=== PATIENT | male | born 1935 | race Caucasian/White ===

== ENCOUNTER 2016-08-20 19:14 | Emergency (ER) | payer MEDICARE, OTHER ==
[2016-08-20] MEDS ORDERED: OLANZapine INTRAMUSCULAR 10 MG VIAL (S0166) As Ordered ONE (21:48)
[2016-08-20] MEDS ORDERED: OLANZapine INTRAMUSCULAR 10 MG VIAL (S0166) IM ONE (23:15)
--- NOTE | 2016-08-20 23:40 | REPUSA ---
CT of the head Clinical history: trauma. Protocol: Multiple axial CT images obtained with 5 mm slice thickness were obtained through the head without administration of contrast. Findings: The ventricles and sulci are symmetric but prominent in size bilaterally. There are periven tricular areas of low attenuation throughout the deep white matter. There is no evidence of acute hem orrhage or infarct. There is no midline shift, mass effect, or extra-axial fluid collection. The osse ous structures are unremarkable. The visualized paranasal sinuses and mastoid air cells are clear. Impression: No acute hemorrhage or infarct. Findings are consistent with mild age-related atrophy and chronic small vessel ischemic disease.
--- NOTE | 2016-08-21 | REPUSA ---
CT of the cervical spine Clinical history: Pain. Technique: Multiple axial CT images were obtained through the cervical spine without administration o f contrast. Coronal and sagittal 3-D reconstructed images were also obtained. Comparison: None. Findings: The cervical vertebral bodies are in satisfactory positioning and alignment. No fractures or dislocat ions are demonstrated. The odontoid process is intact. There is severe degenerative disc disease at C 3/C4 and C5/C6. Disc osteophyte complexes are seen at these levels. Moderate bilateral facet arthropa thy is noted with sclerosis and osteophytes. There is no evidence of facet subluxation. The neural fo ramen appear grossly patent. The cervical cranial junction is intact. The cervical spinal canal demon strates normal caliber and contour without evidence of spinal stenosis. The surrounding soft tissues are within normal limits. Impression: No acute fracture or traumatic injury. Severe degenerative disc disease at C3/C4 and C5/C 6. Mild cervical spondylosis otherwise noted.
--- NOTE | 2016-08-21 | REPUSA ---
CT of the facial bones without contrast Clinical history: Pain, injury. Technique: Multiple axial CT images were obtained through the facial bones and paranasal sinuses util izing 3 mm axial slices without administration of contrast. Coronal and sagittal reconstructions were also obtained. Findings: The visualized paranasal sinuses are clear. The osteomeatal complexes are patent bilaterall y. The nasal septum is midline. The visualized mastoid air cells are clear. The osseous structures do not demonstrate any acute abnormalities. The superficial soft tissues are within normal limits. Impression: Unremarkable CT examination of the facial bones and paranasal sinuses.
--- NOTE | 2016-08-21 00:52 | EDDOCDS ---
Physician Documentation [facility] Name: Jim Overton Age: 80 yrs Sex: Male : 1935 Arrival Date: 08/20/2016 Time: 19:14 Bed PD Private MD: Jarred Burciaga Disposition: 08/21/16 00:19 Discharged to Home/Self Care. Impression: Laceration without foreign body of other part of head - Right Facial Laceration, Superficial injury of head, Cervicalgia - Acute, Degenerative Disc Disease on CT of C-spine, Other spondylosis, cervical region. - Condition is Stable. - Discharge Instructions: Facial Laceration, [id number], Head Injury, Adult, [id number]. - Medication Reconciliation, Local Pharmacy Hours form. - Follow up: Jarred Burciaga; When: 1 - 2 days; Reason: Recheck today's complaints, Continuance of care. Follow up: Emergency Department; Reason: Worsening of conditions. Follow up: Orthopaedics, [facility]; When: Call to arrange an appointment; Reason: Further diagnostic work-up, Recheck today's complaints, Continuance of care. - Problem is new. - Symptoms have improved. Historical: - Allergies: No known drug Allergies; - Home Meds: 1. Seroquel 100 mg Oral tab 1 tab 2 times per day 2. famotidine 40 mg Oral tab 1 tab once daily 3. Seroquel 50 mg Oral tab 2 times per day PRN 4. Lexapro 20 mg Oral tab once daily 5. Tylenol 325 mg Oral tab twice a day 6. Florinef 0.1 mg Oral tab 1 tab three times daily 7. Provera 2.5 mg oral tab once daily 8. aspirin 81 mg Oral tab 1 tab once daily 9. Aricept 5 mg Oral tab 1 tab once daily 10. Miralax 17 gram/dose Oral powd once daily 11. multivitamin Oral tab daily - PMHx: Alzheimers; Dementia; COPD; Sleep Apnea w/o CPAP; GERD; Diverticulosis; - PSHx: Appendectomy; - Social history: Smoking status: Patient states former smoker of tobacco. No barriers to communication noted, The patient speaks fluent Salvadorean, Speaks appropriately for age. - Family history: Not pertinent. - : The pt / caregiver states he / she is not on anticoagulants. Home medication list is obtained from the facility MAR. - Exposure Risk Screening:: None identified. Vital Signs: 08/20 19:15 BP 155 / 76; Pulse 65; Resp 18; Temp 96.8(T); Pulse Ox 98% on R/A; Weight 74.84 kg / dem1 164.99 lbs; Height 75 in. (190.50 cm); 08/21 00:49 BP 148 / 70; Pulse 66; Resp 18; Temp 97.2(O); Pulse Ox 99% on R/A; Pain 0/10; jmb 08/20 19:15 Body Mass Index 20.62 (74.84 kg, 190.50 cm) dem1 Jerrell Coma Score: 08/20 19:23 Eye Response: spontaneous(4). Verbal Response: oriented(5). Motor Response: obeys ck1 commands(6). Total: 15. Procedures: 21:16 Laceration repair:. Wound care to laceration located on right eye was cleaned with ef1 Betadine, irrigated with normal saline, dressed with Neosporin, 4X4s, Patient tolerated well. Laceration: 21:16 Wound Repair of 1cm ( 0.4in ) avulsed laceration to face and right eye. Distal ef1 neuro/vascular/tendon intact. Dressed with Bacitracin, 4x4's. Patient tolerated well. MDM: 21:12 Wound Care ordered. ef1 21:12 Bacitracin Ointment 500 unit/g 1 applic Topical in affected area once ordered. ef1 21:12 Dressing ordered. ef1 21:13 CT Head Without Contrast Ordered. EDMS 21:13 CT Maxilofacial W/out Contrast Ordered. EDMS 21:14 CT Spine,Cervical W/o Contrast Ordered. EDMS 21:44 OLANZapine 5 mg IM once ordered. cs11 22:19 Financial registration complete. gjb 22:20 OLANZapine 5 mg IM once ordered. cs11 22:21 [facility] Payment Agreement was scanned into [employer] and attached to record. gjb Administered Medications: 21:18 Drug: Bacitracin 1 applic [bacitracin zinc 500 unit/gram topical ointment (1 applic)] ck1 Route: Topical; Site: affected area; 21:55 Drug: OLANZapine 5 mg [olanzapine 10 mg intramuscular solution (5 mg)] Route: IM; Site: jmb right deltoid; 23:43 Not Given (daughter refused, patient asleep): OLANZapine 5 mg IM once reed Signatures: Dispatcher [employer] Carrie Short,RN RN ck1 Zohreh Isaac, PA-C PAEduarda ef1 Krishna Huitron, DO cs11 Maximus Rocha RN RN jmb Beck, Gabriela gjb The chart was reviewed and I authenticate all verbal orders and agree with the evaluation and treatment provided.Attachments: 22:21 [facility] Payment Agreement dinesh MTDD
--- NOTE | 2016-08-21 00:52 | EDDOCDS ---
Nurse's Notes [facility] Name: Jim Overton Age: 80 yrs Sex: Male : 1935 Arrival Date: 08/20/2016 Time: 19:14 Bed PD Private MD: Jarred Burciaga Diagnosis: Laceration without foreign body of other part of head-Right Facial Laceration;Superficial injury of head;Cervicalgia-Acute, Degenerative Disc Disease on CT of C-spine;Other spondylosis, cervical region Presentation: 08/20 19:23 Presenting complaint: Sent from [facility], found sitting in recliner with TV on head. Appears ck1 that patient attempted to pick remover a television and fell backwards hitting his right eye. Bruising with small laceration present. This patient has no additional risk factors. Mechanism of Injury: resulted from a direct blow. Adult Sepsis Screening: The patient does not have new or worsening altered mentation. Patient's respiratory rate is less than 22. Systolic blood pressure is greater than 100. Patient has a qSOFA score of 0- Negative Sepsis Screen. Suicide/Homicide risk assessment- the patient denies having any suicidal and/or homicidal ideations and does not present with any other emotional, behavioral or mental health complaints. 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 Transition of care: patient was received from [facility]. 19:23 Acuity: MANAV Level 3 ck1 19:23 Method Of Arrival: Wheelchair ck1 Triage Assessment: 19:30 General: Appears in no apparent distress, Behavior is appropriate for age, cooperative. ck1 Pain: Unable to use pain scale. Does not appear to understand pain scale. Neurological: Level of Consciousness is awake, alert, obeys commands, Oriented to person. Derm: Bruising that is on right eye Swollen area noted. Musculoskeletal: No deficits noted. Historical: - Allergies: No known drug Allergies; - Home Meds: 1. Seroquel 100 mg Oral tab 1 tab 2 times per day 2. famotidine 40 mg Oral tab 1 tab once daily 3. Seroquel 50 mg Oral tab 2 times per day PRN 4. Lexapro 20 mg Oral tab once daily 5. Tylenol 325 mg Oral tab twice a day 6. Florinef 0.1 mg Oral tab 1 tab three times daily 7. Provera 2.5 mg oral tab once daily 8. aspirin 81 mg Oral tab 1 tab once daily 9. Aricept 5 mg Oral tab 1 tab once daily 10. Miralax 17 gram/dose Oral powd once daily 11. multivitamin Oral tab daily - PMHx: Alzheimers; Dementia; COPD; Sleep Apnea w/o CPAP; GERD; Diverticulosis; - PSHx: Appendectomy; - Social history: Smoking status: Patient states former smoker of tobacco. No barriers to communication noted, The patient speaks fluent Slovak, Speaks appropriately for age. - Family history: Not pertinent. - : The pt / caregiver states he / she is not on anticoagulants. Home medication list is obtained from the facility MAR. - Exposure Risk Screening:: None identified. Screenin:19 Screening information is obtained from residence staff. Fall risk: At risk due to prior 1 history of falls, The following interventions are performed due to a positive Fall Risk Screen: Fall Risk is added to Special Handling on the patient Summary Screen. A Fall Risk Bracelet was applied to the patient. Side Rails are placed in the up position. A Call Howell is given with instruction to call for help when getting out of bed. Fall Alert bracelet is placed on the patient. Assistance ADL's: Requires assistance with meal preparation, this assistance is provided by residence staff, bathing, assistance is provided by residence staff, dressing, assistance is provided by residence staff, toileting, assistance is provided by residence staff, ambulation, assistance is provided by residence staff, housework, assistance is provided by residence staff, medication administration, assistance is provided by residence staff. Abuse/DV Screen: The patient / caregiver reports he/she is: not in a situation that causes fear, pain or injury. Nutritional screening: No deficits noted. Advance Directives: Advance directive information has been placed on a prior [facility] medical record, but the patient/ family does not know when. home support is adequate. Assessment: 21:20 General: Appears in no apparent distress, comfortable, Behavior is appropriate for age, ck1 cooperative. Pain: Unable to use pain scale. Does not appear to understand pain scale. Neurological: Level of Consciousness is awake, alert. Derm: laceration to right eye, bleeding controlled, band aid placed. 08/21 00:49 General: half-way staff educated on discharge instructions. Nurse and daughter jmb asked if there were any questions regarding discharge, both parties stated no. PATIENT CARE SPECIALIST from [facility] signed discharge instructions. Patient discharged in stable condition. . Neurological: Reports no additional symptoms. Vital Signs: 08/20 19:15 BP 155 / 76; Pulse 65; Resp 18; Temp 96.8(T); Pulse Ox 98% on R/A; Weight 74.84 kg; dem1 Height 75 in. (190.50 cm); 08/21 00:49 BP 148 / 70; Pulse 66; Resp 18; Temp 97.2(O); Pulse Ox 99% on R/A; Pain 0/10; jmb 08/20 19:15 Body Mass Index 20.62 (74.84 kg, 190.50 cm) dem1 Vitals: 08/20 19:15 Log In Time: August 20, 2016 at 19:13. dem1 Jerrell Coma Score: 19:23 Eye Response: spontaneous(4). Verbal Response: oriented(5). Motor Response: obeys ck1 commands(6). Total: 15. ED Course: 19:14 Patient visited by Stephie Fernandez. dem1 19:14 Patient moved to Waiting dem1 19:15 Jarred Burciaga MD is Private Physician. dem1 19:16 Patient moved to Pre RCE dem1 19:25 Triage Initiated ck1 20:31 Patient moved to Triage 1 b 20:59 Patient visited by Carrie Gonzales RN. ck1 21:01 Zohreh Isaac PA-C [facility]. ef1 21:01 Krishna Huitron DO is Attending Physician. ef1 21:02 Patient visited by Zohreh Isaac PA-C. ef1 21:18 Patient moved to PR1 / ck1 21:18 Wound care to laceration located on right eye was cleaned with with wound cleanser, ck1 dressed with band aid. 21:20 The patient / caregiver is instructed regarding the plan of care and ED course. ck1 21:39 Patient visited by Zohreh Isaac PA-C. ef1 21:47 Patient moved to PD ajs 22:21 [facility] Payment Agreement was scanned into [employer] and attached to record. gjb 22:22 Patient visited by Zohreh Isaac PA-C. ef1 22:58 Patient visited by Zohreh Isaac PA-C. ef1 23:14 Patient visited by Zohreh Isaac PA-C. ef1 23:49 CT Head Without Contrast Returned. EDMS 08/21 00:04 Patient visited by Zohreh Isaac PA-C. ef1 00:19 Jarred Burciaga MD is Referral Physician. ef1 00[facility] ef1 00:33 CT Maxilofacial W/out Contrast Returned. EDMS 00:33 CT Spine,Cervical W/o Contrast Returned. EDMS 00:49 No IV's were initiated during this patient's visit. No procedures done that require jmb assistance. Administered Medications: 08/20 21:18 Drug: Bacitracin 1 applic [bacitracin zinc 500 unit/gram topical ointment (1 applic)] ck1 Route: Topical; Site: affected area; 21:55 Drug: OLANZapine 5 mg [olanzapine 10 mg intramuscular solution (5 mg)] Route: IM; Site: jmb right deltoid; 23:43 Not Given (daughter refused, patient asleep): OLANZapine 5 mg IM once jmb Order Results: Radiology Order: CT Head Without Contrast Test: CT Head Without Contrast REASON FOR EXAMINATION: Trauma; ; CT of the head; Clinical history: trauma.; Protocol: Multiple axial CT images obtained with 5 mm slice thickness were obtained through the head; without administration of contrast.; Findings: The ventricles and sulci are symmetric but prominent in size bilaterally. There are periven; tricular areas of low attenuation throughout the deep white matter. There is no evidence of acute hem; orrhage or infarct. There is no midline shift, mass effect, or extra-axial fluid collection. The osse; ous structures are unremarkable. The visualized paranasal sinuses and mastoid air cells are clear.; Impression: No acute hemorrhage or infarct. Findings are consistent with mild age-related atrophy and; chronic small vessel ischemic disease.; ; Radiology Order: CT Maxilofacial W/out Contrast Test: CT Maxilofacial W/out Contrast REASON FOR EXAMINATION: Trauma; ; CT of the facial bones without contrast; Clinical history: Pain, injury.; Technique: Multiple axial CT images were obtained through the facial bones and paranasal sinuses util; izing 3 mm axial slices without administration of contrast. Coronal and sagittal reconstructions were; also obtained.; Findings: The visualized paranasal sinuses are clear. The osteomeatal complexes are patent bilaterall; y. The nasal septum is midline. The visualized mastoid air cells are clear. The osseous structures do; not demonstrate any acute abnormalities. The superficial soft tissues are within normal limits.; Impression: Unremarkable CT examination of the facial bones and paranasal sinuses.; ; Radiology Order: CT Spine,Cervical W/o Contrast Test: CT Spine,Cervical W/o Contrast REASON FOR EXAMINATION: Trauma; ; CT of the cervical spine; Clinical history: Pain.; Technique: Multiple axial CT images were obtained through the cervical spine without administration o; f contrast. Coronal and sagittal 3-D reconstructed images were also obtained.; Comparison: None.; Findings:; The cervical vertebral bodies are in satisfactory positioning and alignment. No fractures or dislocat; ions are demonstrated. The odontoid process is intact. There is severe degenerative disc disease at C; 3/C4 and C5/C6. Disc osteophyte complexes are seen at these levels. Moderate bilateral facet arthropa; thy is noted with sclerosis and osteophytes. There is no evidence of facet subluxation. The neural fo; ramen appear grossly patent. The cervical cranial junction is intact. The cervical spinal canal demon; strates normal caliber and contour without evidence of spinal stenosis. The surrounding soft tissues; are within normal limits.; Impression: No acute fracture or traumatic injury. Severe degenerative disc disease at C3/C4 and C5/C; 6. Mild cervical spondylosis otherwise noted.; ; Outcome: 08/21 00:19 Discharge ordered by Provider. ef1 00:49 Discharge Assessment: Patient awake, alert and oriented x 3. No cognitive and/or jmb functional deficits noted. Patient verbalized understanding of disposition instructions. Patient awake and alert. obeys commands, Oriented to person, place and time. Patient verbalized understanding of disposition instructions. Patient has no functional deficits. patient administered narcotics - no. The following High Risk Discharge criteria are identified: None. Discharged to home ambulatory. Condition: stable. Discharge instructions given to patient, ortho tech, Instructed on discharge instructions, follow up and referral plans. Demonstrated understanding of instructions, Pt was receptive of discharge instructions/ teaching. CT Study completed. Property sent home with patient. 00:51 Patient left the ED. reed Signatures: Dispatcher [employer] EDCarrie Espinal,RN RN ck1 Zohreh Isaac, PA-C PA-C ef1 Hailey Gibbs Demeishia dem1 Becker, JoshuaRN RN Irene Bagley MTDD
--- NOTE | 2016-08-23 01:53 | EDDOCDS ---
Physician Documentation [facility] Name: Jim Overton Age: 80 yrs Sex: Male : 1935 Arrival Date: 08/20/2016 Time: 19:14 Bed PD Private MD: Jarred Burciaga Disposition: 08/21/16 00:19 Discharged to Home/Self Care. Impression: Laceration without foreign body of other part of head - Right Facial Laceration, Superficial injury of head, Cervicalgia - Acute, Degenerative Disc Disease on CT of C-spine, Other spondylosis, cervical region. - Condition is Stable. - Discharge Instructions: Facial Laceration, [id number], Head Injury, Adult, [id number]. - Medication Reconciliation, Local Pharmacy Hours form. - Follow up: Jarred Burciaga; When: 1 - 2 days; Reason: Recheck today's complaints, Continuance of care. Follow up: Emergency Department; Reason: Worsening of conditions. Follow up: Orthopaedics, [facility]; When: Call to arrange an appointment; Reason: Further diagnostic work-up, Recheck today's complaints, Continuance of care. - Problem is new. - Symptoms have improved. Historical: - Allergies: No known drug Allergies; - Home Meds: 1. Seroquel 100 mg Oral tab 1 tab 2 times per day 2. famotidine 40 mg Oral tab 1 tab once daily 3. Seroquel 50 mg Oral tab 2 times per day PRN 4. Lexapro 20 mg Oral tab once daily 5. Tylenol 325 mg Oral tab twice a day 6. Florinef 0.1 mg Oral tab 1 tab three times daily 7. Provera 2.5 mg oral tab once daily 8. aspirin 81 mg Oral tab 1 tab once daily 9. Aricept 5 mg Oral tab 1 tab once daily 10. Miralax 17 gram/dose Oral powd once daily 11. multivitamin Oral tab daily - PMHx: Alzheimers; Dementia; COPD; Sleep Apnea w/o CPAP; GERD; Diverticulosis; - PSHx: Appendectomy; - Social history: Smoking status: Patient states former smoker of tobacco. No barriers to communication noted, The patient speaks fluent Guatemalan, Speaks appropriately for age. - Family history: Not pertinent. - : The pt / caregiver states he / she is not on anticoagulants. Home medication list is obtained from the facility MAR. - Exposure Risk Screening:: None identified. Vital Signs: 08/20 19:15 BP 155 / 76; Pulse 65; Resp 18; Temp 96.8(T); Pulse Ox 98% on R/A; Weight 74.84 kg / dem1 164.99 lbs; Height 75 in. (190.50 cm); 08/21 00:49 BP 148 / 70; Pulse 66; Resp 18; Temp 97.2(O); Pulse Ox 99% on R/A; Pain 0/10; jmb 08/20 19:15 Body Mass Index 20.62 (74.84 kg, 190.50 cm) dem1 Jerrell Coma Score: 08/20 19:23 Eye Response: spontaneous(4). Verbal Response: oriented(5). Motor Response: obeys ck1 commands(6). Total: 15. Procedures: 21:16 Laceration repair:. Wound care to laceration located on right eye was cleaned with ef1 Betadine, irrigated with normal saline, dressed with Neosporin, 4X4s, Patient tolerated well. Laceration: 21:16 Wound Repair of 1cm ( 0.4in ) avulsed laceration to face and right eye. Distal ef1 neuro/vascular/tendon intact. Dressed with Bacitracin, 4x4's. Patient tolerated well. MDM: 21:12 Wound Care ordered. ef1 21:12 Bacitracin Ointment 500 unit/g 1 applic Topical in affected area once ordered. ef1 21:12 Dressing ordered. ef1 21:13 CT Head Without Contrast Ordered. EDMS 21:13 CT Maxilofacial W/out Contrast Ordered. EDMS 21:14 CT Spine,Cervical W/o Contrast Ordered. EDMS 21:44 OLANZapine 5 mg IM once ordered. cs11 22:19 Financial registration complete. gjb 22:20 OLANZapine 5 mg IM once ordered. cs11 22:21 [facility] Payment Agreement was scanned into [employer] and attached to record. gjb 08/21 07:44 T-Sheet-- Draft Copy was scanned into [employer] and attached to record. gb 12:40 Other: MOLST was scanned into [employer] and attached to record. gb 12:41 Radiology Report was scanned into [employer] and attached to record. gb Administered Medications: 08/20 21:18 Drug: Bacitracin 1 applic [bacitracin zinc 500 unit/gram topical ointment (1 applic)] ck1 Route: Topical; Site: affected area; 21:55 Drug: OLANZapine 5 mg [olanzapine 10 mg intramuscular solution (5 mg)] Route: IM; Site: jmb right deltoid; 23:43 Not Given (daughter refused, patient asleep): OLANZapine 5 mg IM once jmb Signatures: Dispatcher [employer] EDLia Baker, Reg Reg gb Carrie Gonzales,RN RN ck1 Zohreh Isaac PA-C PAEduarda ef1 Krishna Huitron DO DO cs11 Maximus RochaRN RN Irene Bagley The chart was reviewed and I authenticate all verbal orders and agree with the evaluation and treatment provided.Attachments: 22:21 [facility] Payment Agreement gjb 08/21 07:44 T-Sheet-- Draft Copy gb Chart Complete MTDD
--- NOTE | 2016-08-23 01:53 | EDDOCDS ---
Nurse's Notes [facility] Name: Jim Overton Age: 80 yrs Sex: Male : 1935 Arrival Date: 08/20/2016 Time: 19:14 Bed PD Private MD: Jarred Burciaga Diagnosis: Laceration without foreign body of other part of head-Right Facial Laceration;Superficial injury of head;Cervicalgia-Acute, Degenerative Disc Disease on CT of C-spine;Other spondylosis, cervical region Presentation: 08/20 19:23 Presenting complaint: Sent from [facility], found sitting in recliner with TV on head. 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 Bruising with small laceration present. This patient has no additional risk factors. Mechanism of Injury: resulted from a direct blow. Adult Sepsis Screening: The patient does not have new or worsening altered mentation. Patient's respiratory rate is less than 22. Systolic blood pressure is greater than 100. Patient has a qSOFA score of 0- Negative Sepsis Screen. Suicide/Homicide risk assessment- the patient denies having any suicidal and/or homicidal ideations and does not present with any other emotional, behavioral or mental health complaints. Status: Patient is not a information services assistant or dependent. Transition of care: patient was received from [facility]. 19:23 Acuity: MANAV Level 3 ck1 19:23 Method Of Arrival: Wheelchair ck1 Triage Assessment: 19:30 General: Appears in no apparent distress, Behavior is appropriate for age, cooperative. ck1 Pain: Unable to use pain scale. Does not appear to understand pain scale. Neurological: Level of Consciousness is awake, alert, obeys commands, Oriented to person. Derm: Bruising that is on right eye Swollen area noted. Musculoskeletal: No deficits noted. Historical: - Allergies: No known drug Allergies; - Home Meds: 1. Seroquel 100 mg Oral tab 1 tab 2 times per day 2. famotidine 40 mg Oral tab 1 tab once daily 3. Seroquel 50 mg Oral tab 2 times per day PRN 4. Lexapro 20 mg Oral tab once daily 5. Tylenol 325 mg Oral tab twice a day 6. Florinef 0.1 mg Oral tab 1 tab three times daily 7. Provera 2.5 mg oral tab once daily 8. aspirin 81 mg Oral tab 1 tab once daily 9. Aricept 5 mg Oral tab 1 tab once daily 10. Miralax 17 gram/dose Oral powd once daily 11. multivitamin Oral tab daily - PMHx: Alzheimers; Dementia; COPD; Sleep Apnea w/o CPAP; GERD; Diverticulosis; - PSHx: Appendectomy; - Social history: Smoking status: Patient states former smoker of tobacco. No barriers to communication noted, The patient speaks fluent [place], Speaks appropriately for age. - Family history: Not pertinent. - : The pt / caregiver states he / she is not on anticoagulants. Home medication list is obtained from the facility MAR. - Exposure Risk Screening:: None identified. Screenin:19 Screening information is obtained from residence staff. Fall risk: At risk due to prior 1 history of falls, The following interventions are performed due to a positive Fall Risk Screen: Fall Risk is added to Special Handling on the patient Summary Screen. A Fall Risk Bracelet was applied to the patient. Side Rails are placed in the up position. A Call Howell is given with instruction to call for help when getting out of bed. Fall Alert bracelet is placed on the patient. Assistance ADL's: Requires assistance with meal preparation, this assistance is provided by residence staff, bathing, assistance is provided by residence staff, dressing, assistance is provided by residence staff, toileting, assistance is provided by residence staff, ambulation, assistance is provided by residence staff, housework, assistance is provided by residence staff, medication administration, assistance is provided by residence staff. Abuse/DV Screen: The patient / caregiver reports he/she is: not in a situation that causes fear, pain or injury. Nutritional screening: No deficits noted. Advance Directives: Advance directive information has been placed on a prior [facility] medical record, but the patient/ family does not know when. home support is adequate. Assessment: 21:20 General: Appears in no apparent distress, comfortable, Behavior is appropriate for age, ck1 cooperative. Pain: Unable to use pain scale. Does not appear to understand pain scale. Neurological: Level of Consciousness is awake, alert. Derm: laceration to right eye, bleeding controlled, band aid placed. 08/21 00:49 General: correction staff educated on discharge instructions. Nurse and daughter jmb asked if there were any questions regarding discharge, both parties stated no. DULSER from [facility] signed discharge instructions. Patient discharged in stable condition. . Neurological: Reports no additional symptoms. Vital Signs: 08/20 19:15 BP 155 / 76; Pulse 65; Resp 18; Temp 96.8(T); Pulse Ox 98% on R/A; Weight 74.84 kg; dem1 Height 75 in. (190.50 cm); 08/21 00:49 BP 148 / 70; Pulse 66; Resp 18; Temp 97.2(O); Pulse Ox 99% on R/A; Pain 0/10; jmb 08/20 19:15 Body Mass Index 20.62 (74.84 kg, 190.50 cm) dem1 Vitals: 08/20 19:15 Log In Time: August 20, 2016 at 19:13. dem1 Jerrell Coma Score: 19:23 Eye Response: spontaneous(4). Verbal Response: oriented(5). Motor Response: obeys ck1 commands(6). Total: 15. ED Course: 19:14 Patient visited by Stephie Fernandez. dem1 19:14 Patient moved to Waiting dem1 19:15 Jarred Burciaga MD is Private Physician. dem1 19:16 Patient moved to Pre RCE dem1 19:25 Triage Initiated ck1 20:31 Patient moved to Triage 1 b 20:59 Patient visited by Carrie Gonzales RN. ck1 21:01 [facility] ef1 21:01 Krishna Huitron DO is Attending Physician. ef1 21:02 Patient visited by Zohreh Isaac PA-C. ef1 21:18 Patient moved to PR1 / ck1 21:18 Wound care to laceration located on right eye was cleaned with with wound cleanser, ck1 dressed with band aid. 21:20 The patient / caregiver is instructed regarding the plan of care and ED course. ck1 21:39 Patient visited by Zohreh Isaca PA-C. ef1 21:47 Patient moved to PD ajs 22:21 [facility] Payment Agreement was scanned into Flaskon and attached to record. gjb 22:22 Patient visited by Zohreh Isaac PA-C. ef1 22:58 Patient visited by Zohreh Isaac PA-C. ef1 23:14 Patient visited by Zohreh Isaac PA-C. ef1 23:49 CT Head Without Contrast Returned. EDMS 08/21 00:04 Patient visited by Zohreh Isaac PA-C. ef1 00:19 Jarred Burciaga MD is Referral Physician. ef1 00[facility] ef[facility] 00:33 CT Maxilofacial W/out Contrast Returned. EDMS 00:33 CT Spine,Cervical W/o Contrast Returned. EDMS 00:49 No IV's were initiated during this patient's visit. No procedures done that require jmb assistance. 07:44 T-Sheet-- Draft Copy was scanned into Flaskon and attached to record. gb 12:40 Other: MOLST was scanned into Flaskon and attached to record. gb 12:41 Radiology Report was scanned into Flaskon and attached to record. gb Administered Medications: 08/20 21:18 Drug: Bacitracin 1 applic [bacitracin zinc 500 unit/gram topical ointment (1 applic)] ck1 Route: Topical; Site: affected area; 21:55 Drug: OLANZapine 5 mg [olanzapine 10 mg intramuscular solution (5 mg)] Route: IM; Site: jmb right deltoid; 23:43 Not Given (daughter refused, patient asleep): OLANZapine 5 mg IM once jmb Order Results: Radiology Order: CT Head Without Contrast Test: CT Head Without Contrast REASON FOR EXAMINATION: Trauma; ; CT of the head; Clinical history: trauma.; Protocol: Multiple axial CT images obtained with 5 mm slice thickness were obtained through the head; without administration of contrast.; Findings: The ventricles and sulci are symmetric but prominent in size bilaterally. There are periven; tricular areas of low attenuation throughout the deep white matter. There is no evidence of acute hem; orrhage or infarct. There is no midline shift, mass effect, or extra-axial fluid collection. The osse; ous structures are unremarkable. The visualized paranasal sinuses and mastoid air cells are clear.; Impression: No acute hemorrhage or infarct. Findings are consistent with mild age-related atrophy and; chronic small vessel ischemic disease.; ; Radiology Order: CT Maxilofacial W/out Contrast Test: CT Maxilofacial W/out Contrast REASON FOR EXAMINATION: Trauma; ; CT of the facial bones without contrast; Clinical history: Pain, injury.; Technique: Multiple axial CT images were obtained through the facial bones and paranasal sinuses util; izing 3 mm axial slices without administration of contrast. Coronal and sagittal reconstructions were; also obtained.; Findings: The visualized paranasal sinuses are clear. The osteomeatal complexes are patent bilaterall; y. The nasal septum is midline. The visualized mastoid air cells are clear. The osseous structures do; not demonstrate any acute abnormalities. The superficial soft tissues are within normal limits.; Impression: Unremarkable CT examination of the facial bones and paranasal sinuses.; ; Radiology Order: CT Spine,Cervical W/o Contrast Test: CT Spine,Cervical W/o Contrast REASON FOR EXAMINATION: Trauma; ; CT of the cervical spine; Clinical history: Pain.; Technique: Multiple axial CT images were obtained through the cervical spine without administration o; f contrast. Coronal and sagittal 3-D reconstructed images were also obtained.; Comparison: None.; Findings:; The cervical vertebral bodies are in satisfactory positioning and alignment. No fractures or dislocat; ions are demonstrated. The odontoid process is intact. There is severe degenerative disc disease at C; 3/C4 and C5/C6. Disc osteophyte complexes are seen at these levels. Moderate bilateral facet arthropa; thy is noted with sclerosis and osteophytes. There is no evidence of facet subluxation. The neural fo; ramen appear grossly patent. The cervical cranial junction is intact. The cervical spinal canal demon; strates normal caliber and contour without evidence of spinal stenosis. The surrounding soft tissues; are within normal limits.; Impression: No acute fracture or traumatic injury. Severe degenerative disc disease at C3/C4 and C5/C; 6. Mild cervical spondylosis otherwise noted.; ; Outcome: 08/21 00:19 Discharge ordered by Provider. ef1 00:49 Discharge Assessment: Patient awake, alert and oriented x 3. No cognitive and/or jmb functional deficits noted. Patient verbalized understanding of disposition instructions. Patient awake and alert. obeys commands, Oriented to person, place and time. Patient verbalized understanding of disposition instructions. Patient has no functional deficits. patient administered narcotics - no. The following High Risk Discharge criteria are identified: None. Discharged to home ambulatory. Condition: stable. Discharge instructions given to patient, hospital pharmacy director, Instructed on discharge instructions, follow up and referral plans. Demonstrated understanding of instructions, Pt was receptive of discharge instructions/ teaching. CT Study completed. Property sent home with patient. 00:51 Patient left the ED. reed Signatures: Dispatcher [employer] EDMS Lia Phelan, Reg Reg gb Carrie Gonzales,RN RN ck1 Zohreh Isaac, PA-C PA-C ef1 Hailey Gibbs Demeishia dem1 Becker, Joshua,WILLIAN RN Irene Bagley Chart Complete ALEXANDER
--- NOTE | 2016-08-23 01:53 | EDDOCDS ---
Physician Documentation [facility] Name: Jim Overton Age: 80 yrs Sex: Male : 1935 Arrival Date: 08/20/2016 Time: 19:14 Bed PD Private MD: Jarred Burciaga Disposition: 08/21/16 00:19 Discharged to Home/Self Care. Impression: Laceration without foreign body of other part of head - Right Facial Laceration, Superficial injury of head, Cervicalgia - Acute, Degenerative Disc Disease on CT of C-spine, Other spondylosis, cervical region. - Condition is Stable. - Discharge Instructions: Facial Laceration, Eeou-ek-Fyoe, Head Injury, Adult, Pexk-[id number]. - Medication Reconciliation, Local Pharmacy Hours form. - Follow up: Jarred Burciaga; When: 1 - 2 days; Reason: Recheck today's complaints, Continuance of care. Follow up: Emergency Department; Reason: Worsening of conditions. Follow up: Orthopaedics, [facility]; When: Call to arrange an appointment; Reason: Further diagnostic work-up, Recheck today's complaints, Continuance of care. - Problem is new. - Symptoms have improved. Historical: - Allergies: No known drug Allergies; - Home Meds: 1. Seroquel 100 mg Oral tab 1 tab 2 times per day 2. famotidine 40 mg Oral tab 1 tab once daily 3. Seroquel 50 mg Oral tab 2 times per day PRN 4. Lexapro 20 mg Oral tab once daily 5. Tylenol 325 mg Oral tab twice a day 6. Florinef 0.1 mg Oral tab 1 tab three times daily 7. Provera 2.5 mg oral tab once daily 8. aspirin 81 mg Oral tab 1 tab once daily 9. Aricept 5 mg Oral tab 1 tab once daily 10. Miralax 17 gram/dose Oral powd once daily 11. multivitamin Oral tab daily - PMHx: Alzheimers; Dementia; COPD; Sleep Apnea w/o CPAP; GERD; Diverticulosis; - PSHx: Appendectomy; - Social history: Smoking status: Patient states former smoker of tobacco. No barriers to communication noted, The patient speaks fluent [place], Speaks appropriately for age. - Family history: Not pertinent. - : The pt / caregiver states he / she is not on anticoagulants. Home medication list is obtained from the facility MAR. - Exposure Risk Screening:: None identified. Vital Signs: 08/20 19:15 BP 155 / 76; Pulse 65; Resp 18; Temp 96.8(T); Pulse Ox 98% on R/A; Weight 74.84 kg / dem1 164.99 lbs; Height 75 in. (190.50 cm); 08/21 00:49 BP 148 / 70; Pulse 66; Resp 18; Temp 97.2(O); Pulse Ox 99% on R/A; Pain 0/10; jmb 08/20 19:15 Body Mass Index 20.62 (74.84 kg, 190.50 cm) dem1 Jerrell Coma Score: 08/20 19:23 Eye Response: spontaneous(4). Verbal Response: oriented(5). Motor Response: obeys ck1 commands(6). Total: 15. Procedures: 21:16 Laceration repair:. Wound care to laceration located on right eye was cleaned with ef1 Betadine, irrigated with normal saline, dressed with Neosporin, 4X4s, Patient tolerated well. Laceration: 21:16 Wound Repair of 1cm ( 0.4in ) avulsed laceration to face and right eye. Distal ef1 neuro/vascular/tendon intact. Dressed with Bacitracin, 4x4's. Patient tolerated well. MDM: 21:12 Wound Care ordered. ef1 21:12 Bacitracin Ointment 500 unit/g 1 applic Topical in affected area once ordered. ef1 21:12 Dressing ordered. ef1 21:13 CT Head Without Contrast Ordered. EDMS 21:13 CT Maxilofacial W/out Contrast Ordered. EDMS 21:14 CT Spine,Cervical W/o Contrast Ordered. EDMS 21:44 OLANZapine 5 mg IM once ordered. cs11 22:19 Financial registration complete. gjb 22:20 OLANZapine 5 mg IM once ordered. cs11 22:21 [facility] Payment Agreement was scanned into smartclip and attached to record. gjb 08/21 07:44 T-Sheet-- Draft Copy was scanned into smartclip and attached to record. gb 12:40 Other: MOLST was scanned into smartclip and attached to record. gb 12:41 Radiology Report was scanned into smartclip and attached to record. gb Administered Medications: 08/20 21:18 Drug: Bacitracin 1 applic [bacitracin zinc 500 unit/gram topical ointment (1 applic)] ck1 Route: Topical; Site: affected area; 21:55 Drug: OLANZapine 5 mg [olanzapine 10 mg intramuscular solution (5 mg)] Route: IM; Site: jmb right deltoid; 23:43 Not Given (daughter refused, patient asleep): OLANZapine 5 mg IM once jmb Signatures: Dispatcher [employer] EDLia Baker, Reg Reg gb Carrie Gonzales,RN RN ck1 Zohreh Isaac PA-C PAEduarda ef1 Krishna Huitron DO DO cs11 Maximus RochaRN RN Irene Bagley The chart was reviewed and I authenticate all verbal orders and agree with the evaluation and treatment provided.Attachments: 22:21 [facility] Payment Agreement gjb 08/21 07:44 T-Sheet-- Draft Copy gb Chart Complete MTDD
== END 2016-08-21 00:51 | disposition home or self-care (01) ==
LOC: M ED 19:14
DX: S01.91XA Laceration without foreign body of unspecified part of head, initial encounter (principal); W22.8XXA Striking against or struck by other objects, initial encounter; Y92.129 Unspecified place in nursing home as the place of occurrence of the external cause; Y93.89 Activity, other specified; Y99.8 Other external cause status; M50.30 Other cervical disc degeneration, unspecified cervical region; M47.812 Spondylosis without myelopathy or radiculopathy, cervical region; G30.8 Other Alzheimer's disease; J44.9 Chronic obstructive pulmonary disease, unspecified; G47.30 Sleep apnea, unspecified; K21.9 Gastro-esophageal reflux disease without esophagitis; K57.90 Diverticulosis of intestine, part unspecified, without perforation or abscess without bleeding; Z90.89 Acquired absence of other organs; Z87.891 Personal history of nicotine dependence; Z79.82 Long term (current) use of aspirin; Z79.899 Other long term (current) drug therapy

== ENCOUNTER → 2016-09-03 | Outpatient (REF) | payer MEDICARE, OTHER ==
[2016-09-03 08:48] LABS: MEAN CORPUSCULAR HEMOGLOBIN 32.4 pg (27.0-33.0); MEAN CORPUSCULAR HGB CONC 34.1 g/dl (32.0-36.5); MEAN CORPUSCULAR VOLUME 95.1 fl (80.0-96.0); PLATELET COUNT, AUTOMATED 166 k/mm3 (150-450); RED CELL DISTRIBUTION WIDTH 12.5 % (11.5-14.5); WHITE BLOOD COUNT 4.3 K/mm3 (4.0-10.0)
[2016-09-03 09:12] LABS: BASOPHILS 2 % (0-4); EOSINOPHILS 5 % (0-5)
[2016-09-03 10:04] LABS: ALBUMIN 3.3 GM/DL (3.2-5.2); ALBUMIN/GLOBULIN RATIO 1.03 (1.00-1.93); ALKALINE PHOSPHATASE 53 U/L (45-117); ALT/SGPT 17 U/L (12-78); ANION GAP 8 MEQ/L (8-16); AST/SGOT 16 U/L (15-37); BILIRUBIN,TOTAL 0.5 MG/DL (0.2-1.0); BLOOD UREA NITROGEN 20 MG/DL (7-18); CALCIUM LEVEL 8.3 MG/DL (8.8-10.2); CARBON DIOXIDE LEVEL 31 MEQ/L (21-32); CHLORIDE LEVEL 108 MEQ/L (98-107); CREATININE FOR GFR 1.08 MG/DL (0.70-1.30); GLOMERULAR FILTRATION RATE > 60.0 (>42); GLUCOSE, FASTING 89 MG/DL (83-110); POTASSIUM SERUM 3.8 MEQ/L (3.5-5.1); SODIUM LEVEL 147 MEQ/L (136-145); TOTAL PROTEIN 6.5 GM/DL (6.4-8.2)
== END ==
LOC: SKLAB8 07:00
PROVIDERS: ATTEND Family Medicine
DX: J44.9 Chronic obstructive pulmonary disease, unspecified (principal)

== ENCOUNTER → 2016-10-03 | Outpatient (REF) | payer MEDICARE, OTHER ==
[2016-10-03 09:51] LABS: MEAN CORPUSCULAR HEMOGLOBIN 33.3 pg (27.0-33.0); MEAN CORPUSCULAR HGB CONC 34.6 g/dl (32.0-36.5); MEAN CORPUSCULAR VOLUME 96.4 fl (80.0-96.0); RED CELL DISTRIBUTION WIDTH 12.2 % (11.5-14.5); WHITE BLOOD COUNT 9.8 K/mm3 (4.0-10.0)
== END ==
LOC: SKLAB8 08:20
PROVIDERS: ATTEND Family Medicine
DX: K62.5 Hemorrhage of anus and rectum (principal)

== ENCOUNTER → 2016-10-04 | Outpatient (REF) | payer MEDICARE, OTHER ==
[2016-10-04 10:20] LABS: MEAN CORPUSCULAR HEMOGLOBIN 32.9 pg (27.0-33.0); MEAN CORPUSCULAR HGB CONC 33.9 g/dl (32.0-36.5); RED CELL DISTRIBUTION WIDTH 12.3 % (11.5-14.5); WHITE BLOOD COUNT 7.8 K/mm3 (4.0-10.0)
== END ==
LOC: SKLAB8 08:41
PROVIDERS: ATTEND Family Medicine
DX: K62.5 Hemorrhage of anus and rectum (principal)

== ENCOUNTER → 2016-12-03 | Outpatient (REF) | payer MEDICARE, OTHER ==
[2016-12-03 08:31] LABS: BASO % 0.6 % (0.0-1.0); EOS # 0.2 K/mm3 (0.0-0.50); EOS % 3.1 % (0.0-3.0); LARGE UNSTAINED CELL # 0.3 K/mm3 (0.0-0.4); LARGE UNSTAINED CELL % 4.8 % (0.0-4.0); LYMPH # 1.6 K/mm3 (1.5-4.5); LYMPH % 25.2 % (24.0-44.0); MEAN CORPUSCULAR HEMOGLOBIN 31.8 pg (27.0-33.0); MEAN CORPUSCULAR HGB CONC 33.6 g/dl (32.0-36.5); MEAN CORPUSCULAR VOLUME 94.7 fl (80.0-96.0); MONO # 0.5 K/mm3 (0.0-0.8); MONO % 9.5 % (0.0-5.0); NEUTROPHILS % 56.9 % (36.0-66.0); PLATELET COUNT, AUTOMATED 181 k/mm3 (150-450); RED CELL DISTRIBUTION WIDTH 11.9 % (11.5-14.5); WHITE BLOOD COUNT 5.2 K/mm3 (4.0-10.0)
[2016-12-03 08:44] LABS: ALBUMIN 3.5 GM/DL (3.2-5.2); ALKALINE PHOSPHATASE 55 U/L (45-117); ALT/SGPT 19 U/L (12-78); ANION GAP 6 MEQ/L (8-16); AST/SGOT 15 U/L (15-37); BILIRUBIN,TOTAL 0.5 MG/DL (0.2-1.0); BLOOD UREA NITROGEN 16 MG/DL (7-18); CALCIUM LEVEL 8.5 MG/DL (8.8-10.2); CARBON DIOXIDE LEVEL 31 MEQ/L (21-32); CHLORIDE LEVEL 105 MEQ/L (98-107); CREATININE FOR GFR 1.05 MG/DL (0.70-1.30); GLOMERULAR FILTRATION RATE > 60.0 (>42); GLUCOSE, FASTING 91 MG/DL (83-110); POTASSIUM SERUM 3.6 MEQ/L (3.5-5.1); SODIUM LEVEL 142 MEQ/L (136-145)
== END ==
LOC: SKLAB8 07:00
PROVIDERS: ATTEND Family Medicine
DX: J44.9 Chronic obstructive pulmonary disease, unspecified (principal)

== ENCOUNTER → 2017-03-04 | Outpatient (REF) | payer MEDICARE, OTHER ==
[2017-03-04 08:12] LABS: BASO % 0.5 % (0.0-1.0); EOS # 0.2 K/mm3 (0.0-0.50); EOS % 4.1 % (0.0-3.0); LARGE UNSTAINED CELL # 0.2 K/mm3 (0.0-0.4); LARGE UNSTAINED CELL % 3.7 % (0.0-4.0); LYMPH # 1.6 K/mm3 (1.5-4.5); LYMPH % 21.7 % (24.0-44.0); MEAN CORPUSCULAR HEMOGLOBIN 31.6 pg (27.0-33.0); MEAN CORPUSCULAR HGB CONC 33.6 g/dl (32.0-36.5); MEAN CORPUSCULAR VOLUME 94.2 fl (80.0-96.0); MONO # 0.6 K/mm3 (0.0-0.8); MONO % 10.3 % (0.0-5.0); NEUTROPHILS # 3.7 K/mm3 (1.8-7.7); NEUTROPHILS % 59.8 % (36.0-66.0); PLATELET COUNT, AUTOMATED 195 k/mm3 (150-450); RED CELL DISTRIBUTION WIDTH 12.1 % (11.5-14.5); WHITE BLOOD COUNT 6.2 K/mm3 (4.0-10.0)
[2017-03-04 09:12] LABS: ALBUMIN 3.3 GM/DL (3.2-5.2); ALKALINE PHOSPHATASE 55 U/L (45-117); ALT/SGPT 19 U/L (12-78); ANION GAP 8 MEQ/L (8-16); AST/SGOT 18 U/L (15-37); BILIRUBIN,TOTAL 0.5 MG/DL (0.2-1.0); BLOOD UREA NITROGEN 19 MG/DL (7-18); CALCIUM LEVEL 9.4 MG/DL (8.8-10.2); CARBON DIOXIDE LEVEL 30 MEQ/L (21-32); CHLORIDE LEVEL 104 MEQ/L (98-107); CREATININE FOR GFR 0.98 MG/DL (0.70-1.30); GLOMERULAR FILTRATION RATE > 60.0 (>35); GLUCOSE, FASTING 80 MG/DL (83-110); POTASSIUM SERUM 3.4 MEQ/L (3.5-5.1); SODIUM LEVEL 142 MEQ/L (136-145); TOTAL PROTEIN 7.4 GM/DL (6.4-8.2)
== END ==
LOC: SKLAB8 07:00
PROVIDERS: ATTEND Family Medicine
DX: J44.9 Chronic obstructive pulmonary disease, unspecified (principal)

== ENCOUNTER → 2017-04-01 | Outpatient (REF) | payer MEDICARE, OTHER ==
[2017-04-01 09:37] LABS: ANION GAP 6 MEQ/L (8-16); BLOOD UREA NITROGEN 23 MG/DL (7-18); CALCIUM LEVEL 9.5 MG/DL (8.8-10.2); CARBON DIOXIDE LEVEL 30 MEQ/L (21-32); CHLORIDE LEVEL 105 MEQ/L (98-107); CREATININE FOR GFR 1.22 MG/DL (0.70-1.30); GLOMERULAR FILTRATION RATE > 60.0 (>35); GLUCOSE, FASTING 127 MG/DL (83-110); POTASSIUM SERUM 4.2 MEQ/L (3.5-5.1); SODIUM LEVEL 141 MEQ/L (136-145)
== END ==
LOC: SKLAB5 07:53
PROVIDERS: ATTEND Family Medicine
DX: J44.9 Chronic obstructive pulmonary disease, unspecified (principal)

== ENCOUNTER → 2017-04-20 | Outpatient (REF) | payer MEDICARE, OTHER ==
[2017-04-20 19:42] LABS: ADD MANUAL DIFFER YES; MEAN CORPUSCULAR HGB CONC 34.8 g/dl (32.0-36.5); MEAN CORPUSCULAR VOLUME 92.2 fl (80.0-96.0); PLATELET COUNT, AUTOMATED 178 k/mm3 (150-450); RED CELL DISTRIBUTION WIDTH 11.9 % (11.5-14.5); WHITE BLOOD COUNT 9.7 K/mm3 (4.0-10.0)
--- NOTE | 2017-04-20 19:49 | REP ---
Clinical: Chest pain and fever. Comparison: None. Findings: Mediastinum and cardiac silhouette are within normal limits. Diffuse chronic interstitial changes are appreciated with superimposed bibasilar infiltrates (right greater than left) and possible interstitial edema. No obvious effusion. No pneumothorax. Skeletal structures intact. Impression: Bibasilar infiltrates (R>L). Cannot exclude interstitial edema. Signed by Avel Artis MD 04/20/2017 07:41 P
[2017-04-20 19:57] LABS: ALBUMIN 3.4 GM/DL (3.2-5.2); BILIRUBIN,TOTAL 0.5 MG/DL (0.2-1.0); CALCIUM LEVEL 9.2 MG/DL (8.8-10.2); CREATININE FOR GFR 1.33 MG/DL (0.70-1.30); GLOMERULAR FILTRATION RATE 55.1 (>35); TOTAL PROTEIN 6.8 GM/DL (6.4-8.2)
== END ==
LOC: SKLAB5 17:45
PROVIDERS: ATTEND Family Medicine
DX: R50.9 Fever, unspecified (principal); R91.8 Other nonspecific abnormal finding of lung field

== ENCOUNTER → 2017-04-22 | Outpatient (REF) | payer MEDICARE, OTHER ==
[2017-04-22 09:20] LABS: ANION GAP 9 MEQ/L (8-16); BLOOD UREA NITROGEN 27 MG/DL (7-18); CALCIUM LEVEL 9.1 MG/DL (8.8-10.2); CARBON DIOXIDE LEVEL 26 MEQ/L (21-32); CHLORIDE LEVEL 108 MEQ/L (98-107); CREATININE FOR GFR 1.13 MG/DL (0.70-1.30); GLOMERULAR FILTRATION RATE > 60.0 (>35); GLUCOSE, FASTING 106 MG/DL (83-110); SODIUM LEVEL 143 MEQ/L (136-145)
== END ==
LOC: SKLAB5 07:32
PROVIDERS: ATTEND Family Medicine
DX: R50.9 Fever, unspecified (principal)